=== PATIENT | female | born 1965 | race Caucasian/White ===

== ENCOUNTER 2017-12-30 05:34 | Outpatient (CLI) | payer SELFPAY ==
[~2017-12-30] VITALS: Ht 168.9 cm; Wt 85.3 kg
[2017-12-30] MEDS ORDERED: TRIA1TAB5 PO (13:19)
== END 2017-12-30 13:25 ==
LOC: PREOP 05:34
PROVIDERS: ATTEND Obstetrics & Gynecology
DX: Z01.818 Encounter for other preprocedural examination (principal); R33.9 Retention of urine, unspecified

== ENCOUNTER 2018-01-06 10:27 | Day surgery (SDC) | payer BC ==
[~2018-01-06] VITALS: Ht 168.9 cm; Wt 85.3 kg
[~2018-01-06 10:27] MED LIST: TRIA1TAB5 PO
[2018-01-06] MEDS ORDERED: CATHETER FLUSH 10 ML SYR IV PRN (10:45)
[2018-01-06] MEDS ORDERED: ceFAZolin 1 GM/NS 100 ML IVPB IV ONE ×2 (10:45)
[2018-01-06] MEDS ORDERED: ESTRADIOL VAGINAL CREAM 42.5 GM (ESTRACE) VG ONE (10:57)
[2018-01-06] MEDS ORDERED: BUP/EPI 0.5% 1:200,000 (SENSORCAINE) 30 ML VIAL ONE (10:57)
[2018-01-06 11:03] LABS: BASOPHILS % (AUTO) 0 % (0-10); EOSINOPHILS # (AUTO) 0.1 10^3/uL (0.0-0.3); EOSINOPHILS % (AUTO) 1 % (0-10); HEMATOCRIT 42 % (35-52); HEMOGLOBIN 14.8 G/DL (11.5-16.0); LYMPHOCYTES # (AUTO) 0.7 X 10^3 (1.0-4.0); LYMPHOCYTES % (AUTO) 14 % (12-44); MEAN CORPUSCULAR HEMOGLOBIN 30 PG (25-34); MEAN CORPUSCULAR HGB CONC 35 G/DL (32-36); MEAN CORPUSCULAR VOLUME 86 FL (80-99); MEAN PLATELET VOLUME 8.8 FL (7.4-10.4); MONOCYTES # (AUTO) 0.4 X 10^3 (0.0-1.0); MONOCYTES % (AUTO) 7 % (0-12); NEUTROPHILS # (AUTO) 4.1 X 10^3 (1.8-7.8); NEUTROPHILS % (AUTO) 78 % (42-75); PLATELET COUNT 281 10^3/uL (130-400); RED BLOOD COUNT 4.91 10^6/uL (4.35-5.85); RED CELL DISTRIBUTION WIDTH 13.8 % (10.0-14.5); WHITE BLOOD COUNT 5.2 10^3/uL (4.3-11.0)
[2018-01-06] MEDS ORDERED: MIDAZOLAM 2 MG/2 ML (VERSED) VIAL ONE (11:15)
[2018-01-06] MEDS ORDERED: fentaNYL INJECTION 250 MCG/5 ML AMP ONE (11:15)
[2018-01-06] MEDS ORDERED: ROCURONIUM 10 MG/ML 5 ML SYRINGE IV ONE (11:16)
[2018-01-06] MEDS ORDERED: ONDANSETRON 4 MG/2 ML (SDV) Z0FRAN ONE (11:16)
[2018-01-06] MEDS ORDERED: proPOfol 200 MG/20 ML (DIPRIVAN) VIAL IV ONE (11:16)
[2018-01-06] MEDS ORDERED: LIDOCAINE PF 2% 5 ML (XYLOCAINE) VIAL ONE ×2 (11:16→14:17)
[2018-01-06] MEDS ORDERED: SEVOFLURANE (ULTANE) 15 ML INHAL SOLN ONE ×7 (11:16→14:17)
[2018-01-06] MEDS ORDERED: DEXAMETHASONE 10 MG/ML (DECADRON) 1 ML VIAL ONE (11:16)
--- NOTE | 2018-01-06 11:28 | Progress Note-Pre Operative ---
Pre-Operative Progress Note H&P Reviewed The H&P was reviewed, patient examined and no changes noted. Date Seen by Provider: Jan 06, 2018 Time Seen by Provider: : Date H&P Reviewed: Jan 06, 2018 Time H&P Reviewed: : Pre-Operative Diagnosis: MIXED INCONTINENCE, ISD, AND OAB TENZIN DONIS MD Jan 06, 2018 11:28 am
--- NOTE | 2018-01-06 11:29 | Progress Note-Post Operative ---
Post-Operative Progess Note Surgeon (s)/Quality Coordinator (s) Surgeon TENZIN DONIS MD Quality Coordinator: JULIANA Pre-Operative Diagnosis MIXED INCONTINENCE, ISD, AND OAB Post-Operative Diagnosis SAME Procedure & Operative Findings Date of Procedure 01/06/18 Procedure Performed/Findings PVS AND CYSTOSCOPY Anesthesia Type GENERAL Estimated Blood Loss Estimated blood loss (mL): NEGLIGIBLE Specimens/Packing Specimens Removed N/A Packing: KERLIX VAGINAL PACK TENZIN DONIS MD Jan 06, 2018 11:29 am
[2018-01-06] MEDS: LACTATED RINGERS 1,000 ML IV PRN ×3 (11:30→14:40)
--- NOTE | 2018-01-06 11:38 | Progress Note-Pre Operative ---
Pre-Operative Progress Note H&P Reviewed The H&P was reviewed, patient examined and no changes noted. Date Seen by Provider: Jan 06, 2018 Time Seen by Provider: 11:37 Date H&P Reviewed: Jan 06, 2018 Time H&P Reviewed: 11:38 Pre-Operative Diagnosis: DUB/uterovaginal prolapse/stress urinary incontinence KEILA ANDREWS MD Jan 06, 2018 11:38 am
--- NOTE | 2018-01-06 11:39 | Progress Note-Post Operative ---
Post-Operative Progess Note Surgeon (s)/Card Runner (s) Surgeon KEILA ANDREWS MD Card Runner: Cindy Finn Pre-Operative Diagnosis DUB/uterovaginal prolapse/stress urinary incontinence Post-Operative Diagnosis Same with pathology pending Procedure & Operative Findings Date of Procedure 01/06/18 Procedure Performed/Findings TL H with BSO and anterior posterior vaginal repairs with enterocele repair as well as Dr. Anderson performing pubovaginal sling and cystoscopy Anesthesia Type GETA Estimated Blood Loss Estimated blood loss (mL): 300cc Specimens/Packing Specimens Removed Uterus tubes and ovaries Packing: KERLIX VAGINAL PACK KEILA ANDREWS MD Jan 06, 2018 11:39
[2018-01-06] MEDS ORDERED: IBUP-1780 PO (11:44)
[2018-01-06] MEDS ORDERED: ESTR1TAB27 PO (11:44)
[2018-01-06] MEDS ORDERED: OXYC-465 PO (11:44)
[2018-01-06] MEDS ORDERED: DOCU-143 PO (11:44)
[2018-01-06] MEDS ORDERED: PROMETHAZINE INJ 25 MG/ML (PHENERGAN) AMP IM PRN (11:45)
[2018-01-06] MEDS ORDERED: MEPERIDINE (DEMEROL) INJ 100 MG/ML IM PRN (11:45)
[2018-01-06] MEDS ORDERED: ONDANSETRON 4 MG/2 ML (SDV) Z0FRAN IVP PRN ×2 (11:45→14:15)
[2018-01-06] MEDS ORDERED: BENZOCAINE/MENTHOL (DERMOPLAST) 56 ML CAN TP PRN (11:45)
[2018-01-06] MEDS ORDERED: ESTROGENS CONJ IV 25 MG/5 ML (PREMARIN) VIAL IVP ONE (11:45)
[2018-01-06] MEDS ORDERED: WATER (STERILE) FOR INJ 10 ML BTL INJ ONE (11:45)
[2018-01-06] MEDS ORDERED: KETOROLAC 30 MG/ML VIAL IVP SCH (11:45)
--- NOTE | 2018-01-06 11:45 | Discharge Instructions ---
Discharge Instructions Discharge Medications New, Converted or Re-Newed RX: RX on Chart Patient Instructions Patient Instructions: As directed Return to The Hospital For: As directed Activity & Diet Discharge Diet: No Restrictions Activity as Tolerated: No Orders-Post D/C & Referrals Follow Up Appt: Return to clinic on Tuesday, January 09, 2018 at 930 a.m. for staple removal Call to make follow up appt. for patient in 4 weeks. Activity: Rest for 24 hours, than as tolerated. Wound Care: May remove Band-Aid tomorrow. Replace as desired. Keep incisions clean and dry. Wash daily with soap and water. Please call in RX to patient pharmacy. Diet: As tolerated-Clear Liquids only if nauseated. Tomorrow, may shower or tub bathe as desired. No driving for 24 hours, no alcoholic beverages for 24 hours, and nothing per vagina (no tampons, douching, or intercourse) for 8 weeks. Patient to return to the clinic as soon as possible for: Temperature greater than 101F, Severe Pain, Foul discharge from incision or vagina, Excessive Bleeding (more than a period). KEILA ANDREWS MD Jan 06, 2018 11:45 am
[2018-01-06] MEDS ORDERED: ceFAZolin INJECTION 1,000 MG in NS (IVPB) 100 ML IV ONE (12:00)
[2018-01-06 12:05] VITALS: BP 126/84
[2018-01-06] MEDS ORDERED: GLYCOPYRROLATE 0.2 MG/ML (ROBINUL) 2 ML VIAL ONE (12:42)
[2018-01-06] MEDS ORDERED: NEOSTIGMINE 1 MG/ML 5 ML SYRINGE ONE (12:42)
[2018-01-06] MEDS ORDERED: HYDROmorphone (DILAUDID) 2 MG/ML VIAL ONE (13:39)
[2018-01-06] MEDS ORDERED: KETOROLAC 30 MG/ML VIAL ONE (13:39)
[2018-01-06] MEDS ORDERED: morphine INJ 10 MG/ML 1ML (SYR OR VIAL) ONE (13:39)
[2018-01-06] MEDS: HYDROmorphone (DILAUDID) 2 MG/ML VIAL IVP PRN ×4 (13:52→14:22)
[2018-01-06] MEDS ORDERED: MEPERIDINE (DEMEROL) INJ 50 MG/ML IVP PRN (14:15)
[2018-01-06] MEDS ORDERED: morphine INJ 10 MG/ML 1ML (SYR OR VIAL) IVP PRN (14:15)
--- NOTE | 2018-01-06 14:16 | Anesthesia-General Post-Op ---
General Patient Condition Mental Status/LOC: Same as Preop Cardiovascular: Satisfactory Nausea/Vomiting: Absent Respiratory: Satisfactory Pain: Controlled Complications: Absent Post Op Complications Complications None Follow Up Care/Instructions Patient Instructions None needed. Anesthesia/Patient Condition Patient Condition Patient is doing well, no complaints, stable vital signs, no apparent adverse anesthesia problems. No complications reported per nursing. BUBBA COLUNGA CRNA Jan 06, 2018 14:16
[2018-01-06] MEDS ORDERED: LACTATED RINGERS 1,000 ML IV ONE (14:38)
[2018-01-06 15:15] VITALS: BP 123/84
--- NOTE | 2018-01-06 16:34 | OPERATIVE REPORT ---
DATE OF SERVICE: 01/06/2018 PREOPERATIVE DIAGNOSIS: On my part, mixed urinary incontinence with intrinsic sphincter deficiency and overactive bladder. POSTOPERATIVE DIAGNOSIS: On my part, mixed urinary incontinence with intrinsic sphincter deficiency and overactive bladder. OPERATION PERFORMED: Pubovaginal sling and cystoscopy. SURGEON: Tenzin Donis MD. ELECTROCARDIOGRAPH REPAIRER: Narinder Ritter MD. ANESTHESIA: General. COMPLICATIONS: None. DESCRIPTION OF PROCEDURE: After Dr. Ritter performed the first part of his surgery that he would dictate, went ahead and inserted a Delarosa catheter draining clear urine. I passed the Solyx device sling on both sides using the described technique. The sling was sitting nicely under the mid urethra. There was no twisting, no tension and passage of a curved hemostat easily between it and underlying tissue. I removed the Delarosa catheter and performed cystoscopy, which confirmed the integrity of the bladder, ureters and urethra with no foreign body. I left the bladder half full to perform a manual Valsalva maneuver that was negative after removing the cystoscope. I reinserted a Delarosa catheter draining clear urine. Estimated blood loss for my part negligible and Dr. Ritter's procedure was the rest of the surgery that he will dictate. Job ID: [id number] DocumentID: [id number] Dictated Date: 01/06/2018 14:19:29 Javascript Developer Date: 01/06/2018 16:33:58 Dictated By: TENZIN DONIS MD
--- NOTE | 2018-01-06 16:51 | OPERATIVE REPORT ---
DATE OF SERVICE: 01/06/2018 PREOPERATIVE DIAGNOSES: Uterovaginal prolapse and stress urinary incontinence. POSTOPERATIVE DIAGNOSES: Uterovaginal prolapse and stress urinary incontinence. OPERATIVE PROCEDURE: Total laparoscopic hysterectomy with bilateral salpingo-oophorectomy followed by anterior and posterior vaginal repairs with enterocele repair as well as Dr. Anderson performing a pubovaginal sling and cystoscopy. OPERATIVE DESCRIPTION: With the patient in the supine position under satisfactory general anesthesia, she was repositioned in the dorsal lithotomy position in the [facility] and prepped and draped in the usual fashion for abdominal and vaginal surgery. The urinary bladder was drained with Delarosa catheter to dependent drainage. Weighted speculum was placed in the posterior fornix of the vagina. The cervix prolapsed to and began coming through the introitus. The cervix was grasped with a single-tooth tenaculum. The uterus sounded to 13.5 cm with uterine sound. The cervix was then serially dilated with Bj dilators to accommodate a Veronica II manipulator, which was placed using a 6 mm x 8 cm uterine probe and a 35 mm colpotomy ring. Sutures of #1Vicryl were placed at 3 o'clock and 9 o'clock position of the cervix to affix the uterus to the manipulator. The patient was brought in low dorsal lithotomy position. A 12 mm incision was made 4 cm superior to the umbilicus, 8 mm incisions were made 9 cm lateral to the umbilicus. All three incision sites were infiltrated with 0.25% Marcaine with epinephrine prior to incision. Veress needle was placed through upper midline incision. Correct placement was confirmed with a water drop test. The abdomen was insufflated with 2.4 liters of carbon dioxide. The Veress needle was removed and a 12 mm Optiview laparoscopic port was placed. The laparoscope was introduced. The abdominal wall was transilluminated and ports of 8 mm were placed through the lateral incisions under direct vision. The patient was placed in Trendelenburg allowing the bowel to spill up out of the pelvis. The instrument manipulator was positioned and operative instruments were placed in the lateral ports and I retired to the manipulator for the procedure. Using a vessel sealer on the right and a bipolar fenestrated grasper on the left, the pelvis was first examined. There were normal-appearing ovaries, normal-appearing fallopian tubes. The ovaries were somewhat atretic. There was endometriosis in the left ovarian fossa close to the side of the uterus. Both ureters were seemed to peristalse. The uterus was mottled in appearance and somewhat large and bulky and had a number of fibroids on its surface as well. Laparoscope was rotated. The appendix was surgically absent. The laparoscope was brought back to the pelvis. The procedure was initiated by raising the right tube and ovary and then clamping, cauterizing and dividing the IP ligament and then the mesovarium and then the round ligament, broad ligament and finally the cardinal ligament to allow for removal of the tube and ovary with the uterus eventually. The same procedure was performed on the left with the same result. Both ureters were seemed to be peristalsing during this portion of the procedure and were still well away from the area that was being disturbed. The anterior lower uterine segment peritoneum was then divided using monopolar aylin in place of the vessel sealer. The bladder was carefully dissected down off the lower uterine segment exposing the colpotomy ring through the vagina anteriorly and posteriorly. The colpotomy incision was continued circumferentially until the entire colpotomy ring was exposed, then the uterus with the tubes and ovaries still attached was extracted through the vagina. The vaginal cuff was closed with 2 sutures of V-Loc barbed suture starting first from the right angle and including the uterine vessel pedicles in the closure and continuing that to the midline and then starting from the left side doing the same thing completely reapproximating the pelvis and ligating the major vessels that were transected for the hysterectomy. There was minimal bleeding at this point with the procedure complete and no abnormal remaining pathology. The procedure was terminated. The operative instruments were removed under direct vision as were the ports. The patient was brought out of Trendelenburg in the process and in that process the abdomen was evacuated of the insufflating gas. The skin incisions were closed with gracie. The fascia at the supraumbilical incision was closed with a oulprw-wa-yulsz suture of 2-0 Vicryl. The patient was now repositioned in the dorsal lithotomy position for the anterior and posterior repairs. Weighted speculum was placed in the posterior fornix of the vagina. The anterior vaginal wall was grasped with two William clamps near its midpoint. A vertical incision was made in the midline of the vaginal wall with Metzenbaum scissors. That incision was continued from approximately 1 cm to 1.5 cm from the urethral meatus up to the apex of the vagina. The bladder was carefully dissected off the muscularis of the vagina back to the pubic rami bilaterally. The endopelvic fascia and bladder wall were then plicated with 2-0 Vicryl suture elevating the bladder and lengthening the urethra. At this point, Dr. Anderson assumed care of the patient for his portion of the procedure. I remained to assist. Upon completion of the pubovaginal sling and cystoscopy performed by Dr. Anderson, which he will dictate, I resumed care of the patient, resected redundant anterior vaginal muscularis mucosa then closed the vaginal wall with a running locking suture of 2-0 Vicryl. Hemostasis was complete. Good support was evident. Dr. Anderson left the Delarosa catheter to dependent drainage on completion of this portion of the procedure. The posterior repair was then affected by placing William clamps on the perineum and the hymenal ring at 5 o'clock and 7 o'clock position and inverted triangle of skin was removed from the perineal body and upright triangle from the posterior vaginal floor. The rectovaginal space was entered sharply and then dissected bluntly to the apex of the vagina where it was explored for an enterocele, but being a small enterocele it was reduced and plicated with 2 pursestring sutures of 2-0 Vicryl. The retractor was placed anteriorly and Rj retractor posteriorly for exposure. The rectovaginal space was then obliterated with additional sutures of 2-0 Vicryl and the perineal body was restored with 2-0 Vicryl sutures as well. Redundant posterior vaginal wall muscularis mucosa was removed sharply. The vaginal wall was closed with a running locked suture of 3-0 Vicryl Rapide, that closure was continued past the hymenal ring down on the perineal body then back up subcutaneous to the hymenal ring where the suture was tied. Digital rectal exam confirmed no stricture or stenosis of the rectum and no sutures into or through the rectal mucosa. The vagina was examined for hemostasis. That being complete, the vagina was filled with Estrace vaginal cream and a pack of Kerlix gauze was placed. Delarosa catheter was left to dependent drainage. Sponge and needle counts were correct at the end of the procedure. Estimated blood loss for the procedure was minimal for the hysterectomy portion and about 300 mL for the vaginal portion. The patient tolerated the procedure well, was uneventfully awakened from her general anesthesia and transferred to the recovery room in stable condition. Job ID: [id number] DocumentID: [id number] Dictated Date: 01/06/2018 13:41:39 Childcare Worker Date: 01/06/2018 16:51:19 Dictated By: KEILA ANDREWS MD
[2018-01-06 16:55] VITALS: BP 113/73
[2018-01-06 18:00] VITALS: BP 94/65
[2018-01-06 19:40] VITALS: BP 103/64
[2018-01-06] MEDS: KETOROLAC 30 MG/ML VIAL IVP SCH (20:14)
[2018-01-06] MEDS: oxyCODONE/APAP 10/325MG (PERCOCET 10) TABLET PO PRN (22:51)
[2018-01-06] MEDS: D5 LR IV SOLUTION 1,000 ML IV SCH (23:14)
[2018-01-07] MEDS: oxyCODONE/APAP 10/325MG (PERCOCET 10) TABLET PO PRN ×5 (00:01→22:58)
[2018-01-07 00:04] VITALS: BP 104/64
[2018-01-07] MEDS: KETOROLAC 30 MG/ML VIAL IVP SCH ×2 (01:38→06:55)
[2018-01-07 03:51] VITALS: BP 92/57
[2018-01-07] MEDS: D5 LR IV SOLUTION 1,000 ML IV SCH (06:29)
[2018-01-07 08:00] VITALS: BP 123/78
--- NOTE | 2018-01-07 09:04 | Progress Note-Standard ---
Standard Progress Note Progress Notes/Assess & Plan Date Seen by Provider: Jan 07, 2018 Time Seen by Provider: 09:03 Progress/Assessment & Plan Patient without complaint. She has good pain control she is ambulating she is tolerating oral intake ears she has voided a small amount. She denies chest pain, denies shortness of breath, denies nausea vomiting, and denies headache. Vital Signs Date Time Temp Pulse Resp B/P (MAP) Pulse Ox O2 Delivery O2 Flow Rate FiO2 01/07/18 03:51 97.6 73 18 92/57 (69) 98 Nasal Cannula 1.00 01/07/18 00:04 98.0 91 18 104/64 (77) 98 Nasal Cannula 2.00 01/06/18 20:32 Nasal Cannula 2.00 01/06/18 19:40 96.3 103 18 103/64 (77) 97 Nasal Cannula 2.00 01/06/18 18:00 98.3 94 18 94/65 (75) 98 Nasal Cannula 2.00 01/06/18 16:55 98.0 68 16 113/73 (86) 98 Nasal Cannula 2.00 01/06/18 15:50 Nasal Cannula 2.00 01/06/18 15:15 98.1 83 16 123/84 (97) 100 Nasal Cannula 2.00 01/06/18 12:05 98.6 81 16 126/84 (98) 95 Room Air I & O 01/07/18 07:00 Intake Total 4075 ml Output Total 2000 ml Balance 2075 ml Vital signs are stable. Patient is afebrile. The abdomen is benign. Bowel sounds are present. Extremities show no clubbing cyanosis. There is no Homans sign. Assessment and plan postoperative day number 1 doing well. Plan is for discharge home when she is voiding well and requesting discharge home Final Diagnosis Vaginal prolapse/JUSTINE KEILA ANDREWS MD Jan 07, 2018 9:04 am
[2018-01-07] MEDS: DOCUSATE SODIUM 100 MG (COLACE) CAP PO SCH ×2 (09:24→22:57)
[2018-01-07] MEDS: ESTRADIOL 1 MG TAB (ESTRACE) PO SCH (09:24)
[2018-01-07] MEDS: IBUPROFEN 800 MG (MOTRIN) TAB PO SCH ×2 (13:45→21:04)
[2018-01-07 16:00] VITALS: BP 115/75
[2018-01-07 21:05] VITALS: BP 121/79
[2018-01-08 00:50] VITALS: BP 126/78
[2018-01-08] MEDS: IBUPROFEN 800 MG (MOTRIN) TAB PO SCH ×2 (03:02→09:21)
[2018-01-08 04:30] VITALS: BP 116/78
[2018-01-08 07:40] VITALS: BP 125/78
[2018-01-08] MEDS: oxyCODONE/APAP 10/325MG (PERCOCET 10) TABLET PO PRN ×2 (07:40→12:51)
[2018-01-08] MEDS: DOCUSATE SODIUM 100 MG (COLACE) CAP PO SCH (09:21)
[2018-01-08] MEDS: ESTRADIOL 1 MG TAB (ESTRACE) PO SCH (09:21)
--- NOTE | 2018-01-08 09:22 | Progress Note-Standard ---
Standard Progress Note Progress Notes/Assess & Plan Date Seen by Provider: Jan 08, 2018 Time Seen by Provider: 09:22 Progress/Assessment & Plan Patient without complaint. She has good pain control she is ambulating she is tolerating oral intake ears she has voided a small amount. She denies chest pain, denies shortness of breath, denies nausea vomiting, and denies headache. Vital Signs Date Time Temp Pulse Resp B/P (MAP) Pulse Ox O2 Delivery O2 Flow Rate FiO2 01/07/18 03:51 97.6 73 18 92/57 (69) 98 Nasal Cannula 1.00 01/07/18 00:04 98.0 91 18 104/64 (77) 98 Nasal Cannula 2.00 01/06/18 20:32 Nasal Cannula 2.00 01/06/18 19:40 96.3 103 18 103/64 (77) 97 Nasal Cannula 2.00 01/06/18 18:00 98.3 94 18 94/65 (75) 98 Nasal Cannula 2.00 01/06/18 16:55 98.0 68 16 113/73 (86) 98 Nasal Cannula 2.00 01/06/18 15:50 Nasal Cannula 2.00 01/06/18 15:15 98.1 83 16 123/84 (97) 100 Nasal Cannula 2.00 01/06/18 12:05 98.6 81 16 126/84 (98) 95 Room Air I & O 01/07/18 07:00 Intake Total 4075 ml Output Total 2000 ml Balance 2075 ml Vital signs are stable. Patient is afebrile. The abdomen is benign. Bowel sounds are present. Extremities show no clubbing cyanosis. There is no Homans sign. Assessment and plan postoperative day number 1 doing well. Plan is for discharge home when she is voiding well and requesting discharge home January 08, 2018 Patient is without complaint. She is ambulating. She is tolerating by mouth well has good pain control. She denies chest pain, denies shortness of breath, denies nausea vomiting, and denies headache. She is still experiencing urinary retention. Dr. Grande is managing that issue with her. Vital Signs Date Time Temp Pulse Resp B/P (MAP) Pulse Ox O2 Delivery O2 Flow Rate FiO2 01/08/18 04:30 98.2 73 16 116/78 (91) 95 Room Air 01/08/18 00:50 98.4 77 16 126/78 (94) 96 Room Air 01/07/18 21:05 99.1 78 20 121/79 (93) 96 Room Air 01/07/18 16:00 100.2 88 18 115/75 (88) 99 Room Air 01/07/18 13:45 99.5 01/07/18 12:00 100.2 I & O 01/08/18 07:00 Intake Total 3300 ml Output Total 3450 ml Balance -150 ml Vital signs are stable. Patient is afebrile. The abdomen is benign. Extremities show no clubbing or cyanosis. There is no Homans sign. Assessment and plan postoperative day number 2 doing well except for urinary retention. Plan will be for discharge home when bladder management is satisfactorily per Dr. Anderson. Final Diagnosis Uterine and Vaginal prolapse KEILA ANDREWS MD Jan 08, 2018 9:22 am
== END 2018-01-08 13:40 | disposition home or self-care (01) ==
LOC: SDC 10:27 → WS 15:07 → SDC 01-08 13:40
PROVIDERS: ATTEND Obstetrics & Gynecology
DX: N81.4 Uterovaginal prolapse, unspecified (principal); N39.3 Stress incontinence (female) (male); D25.1 Intramural leiomyoma of uterus; D25.2 Subserosal leiomyoma of uterus; N80.0 Endometriosis of uterus; N83.202 Unspecified ovarian cyst, left side; N83.8 Other noninflammatory disorders of ovary, fallopian tube and broad ligament; I10 Essential (primary) hypertension; Z79.899 Other long term (current) drug therapy
CPT/HCPCS: 36415; 84703; 85025; 86850; 86900; 86901; 87081; 94664

== ENCOUNTER → 2019-09-28 | Outpatient (CLI) | payer BC ==
[~2019-09-28] MED LIST changes: +DOCU-143 PO; +ESTR1TAB27 PO; +IBUP-1780 PO; +OXYC-465 PO
== END | disposition home or self-care (01) ==
LOC: PREOP 05:30
PROVIDERS: ATTEND Internal Medicine
DX: Z01.818 Encounter for other preprocedural examination (principal)